=== PATIENT | female | born 1980 | race Caucasian/White ===

== ENCOUNTER 2020-07-25 14:01 | Emergency (ER) | payer MEDICAID ==
[~2020-07-25] VITALS: Ht 175.3 cm; Wt 72.1 kg
[2020-07-25 14:19] VITALS: BP_SYST 144
[2020-07-25] MEDS ORDERED: BACITRACIN 1 GM OINT TP ONE (14:50)
[2020-07-25] MEDS ORDERED: HYDR-3919 PO (14:54)
[2020-07-25] MEDS ORDERED: CEPH500C2 PO (14:54)
[2020-07-25] MEDS ORDERED: NEOM28.36 TP (14:54)
[2020-07-25 15:04] VITALS: BP_SYST 144
== END 2020-07-25 15:04 | disposition home or self-care (01) ==
LOC: SED 14:01
DX: S31.41XA Laceration without foreign body of vagina and vulva, initial encounter (principal); Z88.1 Allergy status to other antibiotic agents; Z88.2 Allergy status to sulfonamides; Z88.8 Allergy status to other drugs, medicaments and biological substances; Z91.013 Allergy to seafood; Z79.899 Other long term (current) drug therapy; X58.XXXA Exposure to other specified factors, initial encounter; Y93.89 Activity, other specified; Y92.89 Other specified places as the place of occurrence of the external cause; Y99.8 Other external cause status
CPT/HCPCS: 99283

== ENCOUNTER 2022-01-06 12:07 | Emergency (ER) | payer MEDICAID ==
[~2022-01-06] VITALS: Ht 172.7 cm; Wt 70.3 kg
[~2022-01-06 12:07] MED LIST: CEPH-548 PO; HYDR-3919 PO; NEOM28.36 TP
[2022-01-06 12:16] VITALS: BP_SYST 115
--- NOTE | 2022-01-06 12:20 | NUR ---
Patient to ER bed H2 to gown for evaluation. Side rails up.
--- NOTE | 2022-01-06 12:22 | NUR ---
Pt brought by self, A&Ox4, pt presents to ER with swelling of the face and swelling tongue this am, pt took 4 benadryl and applied epipen, respirations even and unlabored, cap refill<3, will cont to monitor.
--- NOTE | 2022-01-06 12:34 | NUR ---
DR CASTILLO EVALUATING PT IN [facility]
[2022-01-06] MEDS ORDERED: FAMOTIDINE 20 MG TABLET PO ONE (12:45)
[2022-01-06] MEDS ORDERED: predniSONE 20 MG TABLET PO ONE (12:45)
[2022-01-06] MEDS ORDERED: EPIN0.3P3 IM (14:06)
[2022-01-06] MEDS ORDERED: PRED20TA PO (14:06)
--- NOTE | 2022-01-06 14:13 | NUR ---
Patient given written and verbal discharge instructions and verbalizes understanding. ER MD discussed with patient the results and treatment provided. Patient in stable condition. ID arm band removed. Rx of EPI PEN, PREDNISONE given. Patient educated on pain management and to follow up with PMD. Pain Scale 0/10. Opportunity for questions provided and answered. Medication side effect fact sheet provided.
== END 2022-01-06 14:12 | disposition home or self-care (01) ==
LOC: SED 12:07
DX: T78.40XA Allergy, unspecified, initial encounter (principal); R22.0 Localized swelling, mass and lump, head; R06.02 Shortness of breath; R06.2 Wheezing; Z91.041 Radiographic dye allergy status; Z88.1 Allergy status to other antibiotic agents; Z88.2 Allergy status to sulfonamides; Z91.013 Allergy to seafood; Z79.899 Other long term (current) drug therapy; X58.XXXA Exposure to other specified factors, initial encounter
CPT/HCPCS: 99283; J7512

== ENCOUNTER 2022-03-28 21:19 | Emergency (ER) | payer SELFPAY ==
[~2022-03-28] VITALS: Ht 170.2 cm; Wt 72.6 kg
[~2022-03-28 21:19] MED LIST changes: +EPIN0.3P3 IM; +PRED20TA PO
[2022-03-28 22:15] VITALS: BP_SYST 131
[2022-03-28 23:43] LABS: BILIRUBIN,URINE NEGATIVE (NEGATIVE); BLOOD, URINE TRACE (NEGATIVE); CLARITY/URINE HAZY (CLEAR); COLOR,URINE YELLOW (YELLOW); GLUCOSE,URINE NEGATIVE (NEGATIVE); KETONES,URINE NEGATIVE (NEGATIVE); LEUKOCYTE ESTERASE ,URINE 3+ (NEGATIVE); NITRITE, URINE NEGATIVE (NEGATIVE); PROTEIN URINE NEGATIVE (NEGATIVE); UROBILINOGEN,URINE 0.2 (0.2-1.0)
[2022-03-28 23:52] LABS: BASOPHILS # (AUTO) 0.1 K/uL (0.0-0.2); BASOPHILS % (AUTO) 0.7 % (0.0-2.0); EOSINOPHILS # (AUTO) 0.3 K/uL (0.0-0.4); HEMATOCRIT 39.6 % (36-48); HEMOGLOBIN 13.6 g/dL (12.0-16.0); LYMPHOCYTES # (AUTO) 2.1 K/uL (1.0-5.5); MEAN CORPUSCULAR HEMOGLOBIN 32 pg (27-31); MEAN CORPUSCULAR HGB CONC 34 % (32-36); MEAN CORPUSCULAR VOLUME 92 fL (79.0-98.0); MONOCYTES # (AUTO) 0.9 K/uL (0.0-1.0); NEUTROPHILS % (AUTO) 54.3 % (40.0-70.0); PLATELET COUNT (AUTO) 278 K/uL (130-430); RED BLOOD CELL COUNT(AUTO) 4.29 MIL/uL (4.2-6.2); RED CELL DISTRIBUTION WIDTH 12.5 % (9.0-15.0); WHITE BLOOD COUNT (AUTO) 7.4 K/uL (4.8-10.8)
[2022-03-28 23:55] LABS: BACTERIA,URINE FEW /HPF (None Seen); MUCUS,URINE 1+ /LPF (None Seen); RBC,URINE 0-3 /HPF (0-3); WBC,URINE 0-3 /HPF (0-3)
[2022-03-29 00:07] LABS: CALCIUM 9.6 mg/dL (8.4-11.0); CREATININE 0.71 mg/dL (0.55-1.30)
[2022-03-29 00:13] LABS: ALBUMIN 3.9 g/dL (3.4-4.8); TOTAL BILIRUBIN 0.4 mg/dL (0.0-1.0)
[2022-03-29] MEDS ORDERED: cefTRIAXone 1 GM in D5W 50 ML IV ONE (00:15)
[2022-03-29] MEDS ORDERED: NACL 0.9% 1,000 ML IV ONE (00:15)
[2022-03-29] MEDS ORDERED: cefTRIAXone 1 GM VIAL ONE (00:30)
[2022-03-29] MEDS ORDERED: MORPHINE 4 MG INJ. 4 MG/ML VIAL IVP ONE (00:45)
[2022-03-29] MEDS ORDERED: ONDANSETRON HCL 4 MG/2 ML VIAL IVP ONE (00:45)
[2022-03-29] MEDS ORDERED: HYDR-3917 PO (02:01)
[2022-03-29] MEDS ORDERED: CIPR500T5 PO (02:01)
[2022-03-29] MEDS ORDERED: PHE25 PO (02:01)
[2022-03-29] MEDS ORDERED: MICO24CM4 VG (02:19)
[2022-03-29 03:40] VITALS: BP_SYST 117
== END 2022-03-29 03:40 | disposition home or self-care (01) ==
LOC: SED 21:19
DX: N39.0 Urinary tract infection, site not specified (principal); Z88.2 Allergy status to sulfonamides; Z88.8 Allergy status to other drugs, medicaments and biological substances; Z79.899 Other long term (current) drug therapy
CPT/HCPCS: 99285; 80053; 81000; 85025; 86140; 36415; 96365; 96375; J0696; J2405; J2270